=== PATIENT | female | born 2000 | race Two or more races ===

== ENCOUNTER 2019-02-28 20:19 | Emergency (ER) | payer MEDICAID, OTHER ==
[~2019-02-28] VITALS: Ht 162.6 cm; Wt 54.4 kg
[2019-03-01] MEDS ORDERED: HYDROcodone-ACET 10/325MG TAB PO ONE (00:15)
[2019-03-01] MEDS ORDERED: BACLOFEN 10 MG TAB PO ONE (00:15)
[2019-03-01 01:17] VITALS: BP 137/82
== END 2019-03-01 01:35 | disposition home or self-care (01) ==
LOC: EDBD 20:19 → ER 20:27
DX: M62.838 Other muscle spasm (principal); M54.2 Cervicalgia; V43.52XA Car driver injured in collision with other type car in traffic accident, initial encounter; Y93.89 Activity, other specified; Y99.8 Other external cause status; Y92.410 Unspecified street and highway as the place of occurrence of the external cause
CPT/HCPCS: 72125; 99284; J7030